=== PATIENT | male | born 1985 | race Caucasian/White ===

== ENCOUNTER 2017-12-12 00:16 | Emergency (ER) | payer BC ==
[~2017-12-12] VITALS: Ht 182.9 cm; Wt 82.9 kg
[~2017-12-12 00:16] MED LIST: BENTYL20 MG PO; LOMOTIL TABLET1 EACH PO; MILK THISTLE500 MG PO; PEPTO BISMOL262 MG PO; PROMETHAZINE HC25 M1 PO; THERA-M CAPLET1 EACH PO; VITAMIN C1000 MG PO
[2017-12-12] MEDS ORDERED: VIBRAMYCIN100 MG PO (02:29)
[2017-12-12 02:45] VITALS: BP 133/94
== END 2017-12-12 02:46 | disposition home or self-care (01) ==
LOC: EME 00:16
PROC: 0H91XZZ Drainage of Face Skin, External Approach (ICD-10-PCS; principal; 2017-12-12)
DX: L72.3 Sebaceous cyst (principal); B99.9 Unspecified infectious disease; F17.200 Nicotine dependence, unspecified, uncomplicated; Z88.0 Allergy status to penicillin
CPT/HCPCS: 99281; 99283